=== PATIENT | female | born 1960 | race Caucasian/White ===

== ENCOUNTER → 2017-11-09 | Outpatient (CLI) | payer BC ==
[~2017-11-09] MED LIST: ACET-1748 PO; ACET600C3 PO; ACET600C5 PO; ALPH50CA5 PO; ASCO-599 PO; B COMPLEX; CA C1TAB85 PO; CALC-891 PO; CALC500T76 PO; CALC625T57 PO; CELE-1 PO; CET10 PO; CEVIMPT PO; CHOL200025 PO; DOXY150T6 PO; ESTR42.5 PV; ESZO1TAB16 PO; GREE250C4 PO; GUAI400T18 PO; HYDR-2966 PO; IBU600 PO; IBUP-2704 PO; LORA-802 PO; MELA1TAB27 PO; MELA3TAB31 PO; MILK1CAP4 PO; MULT-1335 PO; OMEG-96 PO; PER PO; POLY1POW MC; POTA99TA6 PO; PSYL0.5241 PO; SENN-187 PO; THYR65TA14 PO; [UNRECOGNIZED DRUG - CODE] MC; [UNRECOGNIZED DRUG - CODE] PO; [UNRECOGNIZED DRUG - OTHER] PO
[2017-11-09 10:52] LABS: LDL CHOLESTEROL 92 mg/dl
== END ==
LOC: LAB 10:24
PROVIDERS: ATTEND Obstetrics & Gynecology
DX: Z00.00 Encounter for general adult medical examination without abnormal findings (principal)
CPT/HCPCS: 36415; 82040; 82247; 82310; 82374; 82435; 82465; 82565; 82947; 83718; 84075; 84132; 84155; 84295; 84443; 84450; 84460; 84478; 84520; 85027

== ENCOUNTER → 2018-04-18 | Outpatient (CLI) | payer BC ==
[~2018-04-18] MED LIST changes: +ESZO1TAB19 PO; +LEVO75TA68 PO
--- NOTE | 2018-04-18 15:37 | RADIOLOGY IMAGING REPORT ---
FACILITY: [facility] PATIENT NAME: Lori Barrett : 1960 MR: [id number] V: [id number] EXAM DATE: ORDERING PHYSICIAN: BERNADETTE RASHEED TECHNOLOGIST: Location: [facility] [place] Patient: Lori Barrett : 1960 Visit/Account:[id number] Date of Sevice: 04/18/2018 DEXA Scan Clinical history: Osteopenia. Comparison: DEXA scan from DEXA scan 09/01/2016.. LUMBAR SPINE: The bone mineral density (BMD) measured from L1-L4 correlates with a Z-score -1.5 and a T-score of - 3.3 which is osteoporosis as defined by the World Health Organization. The corresponding risk of fra cture in the lumbar spine is high compared with a young adult reference population. This value has d ecrease by 14.5 % since the prior study. More than 5% change is considered significant. HIP: Bone mineral density (BMD) measured in the Left femoral neck region correlates with a Z-score -0.3 an d a T-score of -1.9 which is osteopenia as defined by the World Health Organization. The correspon ding risk of fracture in the hip is increased compared with a young adult reference population. The t otal hip value has decrease by 5.0 % since the prior study. More than 5% change is considered signif icant. Bone mineral density (BMD) measured in the Femoral Neck region measures 0.775 g/cm2. IMPRESSION: 1. Lumbar spine: Osteoporosis. There has been decrease in the bone mineral density since the previo us exam. 2. Left femoral neck region: Osteopenia. There has been decreased in the bone mineral density of th e total hip since the previous exam. 3. Femoral Neck: Bone Mineral Density is 0.775 g/cm2 The next DEXA scan of this patient should include the following sites: L1-L4 and the left hip. FRAX? WHO Fracture Risk Assessment Tool link: <http://www.shef.ac.uk/FRAX/tool.jsp?locationValue=9> PLEASE NOTE: 1) The World Health Organization defines low BMD as follows: T-score Normal > -1 Osteopenia < -1 and > -2.5 Osteoporosis < -2.5 without fractures Established osteoporosis < -2.5 with fractures 2) In general, you may wish to consider: Diagnosis Treatment Follow-up DEXA Normal BMD Prevention 2-3 years Osteopenia Prevention/therapy 1-2 years Osteoporosis Therapy Yearly 3) Fracture risk estimated from the T-score is more accurate for vertebral fractures (often spontane ous) than for hip fractures. Report Dictated By: Daniel Mendez at 04/18/2018 3:31 PM Report E-Signed By: Daniel Mendez at 04/18/2018 3:33 PM WSN:PREET
--- NOTE | 2018-04-19 09:52 | RADIOLOGY IMAGING REPORT ---
FACILITY: [facility] [place] PATIENT NAME: ANILA WAGNER : [id number] MR: [id number] V: [id number] EXAM DATE: ORDERING PHYSICIAN: BERNADETTE RASHEED TECHNOLOGIST: Laila Huber PROCEDURE:BILATERAL DIGITAL SCREENING MAMMOGRAM WITH CAD ASSISTED INTERPRETATION & 3D TOMOSYNTHESIS COMPARISON:Prior mammograms 11/08/16, 11/02/15, 05/06/14, 05/05/11. INDICATIONS:screening FINDINGS: The breasts are heterogeneously dense which may obscure small masses. The parenchymal pattern has remained stable allowing for difference in mammographic technique & patient positioning. DIAGNOSTIC CATEGORY 1--NEGATIVE. RECOMMENDATIONS: ROUTINE MAMMOGRAM AND CLINICAL EVALUATION. IMPRESSION: BIRADS 1: Negative. No significant abnormality is seen. Dictated by: Katy Escobar M.D. on 04/18/2018 at 16:45 Transcribed by: HETAL on 04/19/2018 at 8:38 Approved by: Katy Escobar M.D. on 04/19/2018 at 9:51 [facility]
== END ==
LOC: MAMO 01:16
PROVIDERS: ATTEND Family Medicine
DX: Z13.820 Encounter for screening for osteoporosis (principal); Z12.31 Encounter for screening mammogram for malignant neoplasm of breast; M81.0 Age-related osteoporosis without current pathological fracture; M85.88 Other specified disorders of bone density and structure, other site
CPT/HCPCS: 77063; 77067; 77080

== ENCOUNTER → 2018-04-24 | Outpatient (CLI) | payer BC ==
--- NOTE | 2018-04-25 07:01 | EKG ---
FACILITY: [facility] PATIENT NAME: ANILA WAGNER : [id number] MR: [id number] V: [id number] EXAM DATE: ORDERING PHYSICIAN: BERNADETTE RASHEED TECHNOLOGIST: MARK Test Reason : PRE OP Blood Pressure : / mmHG Vent. Rate : 065 BPM Atrial Rate : 065 BPM P-R Int : 116 ms QRS Dur : 080 ms QT Int : 404 ms P-R-T Axes : 066 046 042 degrees QTc Int : 420 ms Normal sinus rhythm Normal ECG When compared with ECG of 20-APR-2016 07:42, No significant change was found Confirmed by BRYON WIN ([id number]) on 04/25/2018 7:37:14 AM Referred By: WILI Confirmed By:BRYON WIN
== END ==
LOC: RESP 14:39
DX: Z01.810 Encounter for preprocedural cardiovascular examination (principal)
CPT/HCPCS: 93005

== ENCOUNTER → 2018-04-24 | Outpatient (CLI) | payer BC | LOC: LAB 14:34 | PROVIDERS: ATTEND Family Medicine | DX: E03.9 Hypothyroidism, unspecified (principal); R94.5 Abnormal results of liver function studies; M81.0 Age-related osteoporosis without current pathological fracture; M85.80 Other specified disorders of bone density and structure, unspecified site | CPT/HCPCS: 36415; 82040; 82247; 82306; 82310; 82374; 82435; 82565; 82947; 84075; 84132; 84155; 84295; 84439; 84443; 84450; 84460; 84481; 84520 ==